=== PATIENT | male | born 1950 | race American Indian/Alaskan Native ===

== ENCOUNTER 2018-12-11 10:50 | Emergency (ER) | payer MEDICARE, OTHER ==
[~2018-12-11] VITALS: Ht 185.4 cm; Wt 99.8 kg
[~2018-12-11 10:50] MED LIST: ACTOS45 MG PO; ASPIRIN EC325 MG PO; CRESTOR20 MG PO; HYDROCODON-ACE1 EA14 PO; LANTUS100 UNITS/ SUB-Q; LEVEMIR100 UNIT/1 SUB-Q; LISINOPRIL10 MG PO; MAGNESIUM; METFORMIN HCL500 MG PO; NORCO 5-325 TA1 EACH PO; NOVOLOG100 UNIT/1 SUB-Q; ULTRAM50 MG PO
== END 2018-12-11 17:20 | disposition short-term general hospital (02) ==
LOC: ED 10:50
DX: M00.9 Pyogenic arthritis, unspecified (principal); M86.9 Osteomyelitis, unspecified; E11.69 Type 2 diabetes mellitus with other specified complication; I10 Essential (primary) hypertension; Z87.891 Personal history of nicotine dependence; Z79.899 Other long term (current) drug therapy; Z79.4 Long term (current) use of insulin
CPT/HCPCS: 73610; 73630; 80053; 85025; 85651; 99284-25

== ENCOUNTER 2021-06-08 22:55 | Emergency (ER) | payer MEDICARE, OTHER ==
[~2021-06-08] VITALS: Ht 185.4 cm; Wt 99.8 kg
[~2021-06-08 22:55] MED LIST changes: +ACTOS15 MG PO; -ACTOS45 MG PO; -CRESTOR20 MG PO; +CRESTOR40 MG NG; -LISINOPRIL10 MG PO; +LISINOPRIL5 MG PO
[2021-06-08] MEDS ORDERED: ASPIRIN325 MG PO (23:25)
[2021-06-09] MEDS ORDERED: CEPHALEXIN500 MG PO (04:56)
[2021-06-09] MEDS ORDERED: ONDANSETRON ODT8 MG PO (04:56)
== END 2021-06-09 05:57 | disposition home or self-care (01) ==
LOC: ED 22:55
DX: N39.0 Urinary tract infection, site not specified (principal); E86.0 Dehydration; E11.621 Type 2 diabetes mellitus with foot ulcer; I10 Essential (primary) hypertension; Z87.891 Personal history of nicotine dependence; Z79.899 Other long term (current) drug therapy; Z79.4 Long term (current) use of insulin; Z79.82 Long term (current) use of aspirin
CPT/HCPCS: 51798; 73650; 80053; 81001; 83605; 83735; 85025; 99284-25; J0696; J2405; J7030

== ENCOUNTER 2021-06-10 00:35 | Emergency (ER) | payer MEDICARE, OTHER ==
[~2021-06-10 00:35] MED LIST changes: +ASPIRIN325 MG PO; +CEPHALEXIN500 MG PO; +ONDANSETRON ODT8 MG PO
--- OUTSIDE RECORDS SUMMARY | 2021-06-10 00:42 | XMS ---
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 E.Allie. VISIT COUNT (12 MO.) [address] [place] [id number] [address] [facility] TOTAL 3 NOTE: Visits indicate total known visits. ED/UCC VISIT TRACKING (12 MO.) 06/10/2021 00:35 [facility] [place] TYPE: Emergency COMPLAINT: - UNRESPONSIVE 06/08/2021 22:56 [facility] [place] TYPE: Emergency COMPLAINT: - NAUSEA,LT HEEL PROBLEM 06/14/2020 14:23 [facility] TYPE: Emergency DIAGNOSES: 0. GLF INPATIENT VISIT TRACKING (12 MO.) [facility] [place] [facility] DIAGNOSES: 0. Type 2 diabetes mellitus with ketoacidosis without coma 06/14/2020 16:39 [facility] TYPE: Internal Medicine DIAGNOSES: 0. HIP FRACTURE [email or web address]
--- NOTE | 2021-06-10 18:56 | EKG ---
[facility] [address] [place] [address] Signed Undetermined rhythm Nonspecific intraventricular block Abnormal ECG No previous ECGs available Confirmed by ABIGAIL GOMEZ MD ([id number]) on 06/10/2021 6:56:41 PM Electronically Signed By: ABIGAIL GOMEZ MD 06/10/21 185 PATIENT NAME: KAVITA DEVRIES RUTH Electrocardiogram DATE OF : 48 PHYSICIAN: ABIGAIL GOMEZ MD REPORT #: [id number] REPORT IS CONFIDENTIAL AND NOT TO BE RELEASED WITHOUT AUTHORIZATION
== END 2021-06-10 03:01 ==
LOC: ED 00:35
DX: I46.9 Cardiac arrest, cause unspecified (principal); E11.9 Type 2 diabetes mellitus without complications; I10 Essential (primary) hypertension; Z87.891 Personal history of nicotine dependence; Z79.899 Other long term (current) drug therapy; Z79.4 Long term (current) use of insulin; Z79.82 Long term (current) use of aspirin
CPT/HCPCS: 31500; 36600; 51702; 71045; 80053; 81001; 82803; 83735; 84484; 85025; 93005; 93010; 94002; 99285-25; J0610; J1815; J7030; J7121